=== PATIENT | female | born 1995 | race Two or more races ===

== ENCOUNTER 2022-06-21 17:26 | Emergency (ER) | payer MEDICAID ==
[~2022-06-21] VITALS: Ht 172.7 cm; Wt 69.3 kg
[2022-06-21] MEDS ORDERED: IBUP600T27 PO (19:51)
[2022-06-22 00:51] VITALS: BP 129/65
== END 2022-06-22 01:17 | disposition home or self-care (01) ==
LOC: ER 17:26
DX: S63.592A Other specified sprain of left wrist, initial encounter (principal); X58.XXXA Exposure to other specified factors, initial encounter; Y93.89 Activity, other specified; Y92.89 Other specified places as the place of occurrence of the external cause; Y99.8 Other external cause status
CPT/HCPCS: 29125; 73110